=== PATIENT | female | born 1970 | race American Indian/Alaskan Native ===

== ENCOUNTER 2018-10-23 11:46 | Outpatient (CLI) | payer BC | END 2018-10-23 11:47 | disposition home or self-care (01) | LOC: RAD 11:46 | DX: C50.819 Malignant neoplasm of overlapping sites of unspecified female breast (principal) ==

== ENCOUNTER 2018-10-27 09:02 | Outpatient (CLI) | payer BC | END 2018-10-27 09:03 | disposition home or self-care (01) | LOC: RAD 09:02 ==